=== PATIENT | male | born 1985 | race Caucasian/White ===

== ENCOUNTER 2020-11-13 08:08 | Emergency (ER) | payer BC ==
[~2020-11-13] VITALS: Ht 195.6 cm; Wt 99.8 kg
[2020-11-13 08:08] VITALS: BP_SYST 132
--- NOTE | 2020-11-13 08:08 | NUR ---
Pt with c/o dog bite to left index finger. No pain noted. VSS
--- NOTE | 2020-11-13 08:08 | NUR ---
ER Dr. Allen at bedside examining patient.
--- NOTE | 2020-11-13 08:08 | NUR ---
BROUGHT BACK TO BED #7 AND TRIAGED. REPORT GIVEN TO JANA Younger
[2020-11-13] MEDS ORDERED: AMOX-426 PO (08:22)
[2020-11-13] MEDS ORDERED: cefTRIAXone 1 GM in LIDOCAINE 1%, 20 ML MDV 2.1 ML IM ONE (08:30)
--- NOTE | 2020-11-13 08:30 | NUR ---
IM rocephin administered per md order.
--- NOTE | 2020-11-13 08:39 | NUR ---
Animal bite reporting form filled out. Pt states he does not know the owners name, address or any information reguarding the dog.
--- NOTE | 2020-11-13 08:41 | NUR ---
Patient given written and verbal discharge instructions and verbalizes understanding. ER MD discussed with patient the results and treatment provided. Patient in stable condition. ID arm band removed. Rx of Amoxacillin given. Patient educated on pain management and to follow up with PMD. Pain Scale 3. Opportunity for questions provided and answered. Medication side effect fact sheet provided.
[2020-11-13 08:43] VITALS: BP_SYST 132
== END 2020-11-13 08:41 | disposition home or self-care (01) ==
LOC: SED 08:08
DX: S60.478A Other superficial bite of other finger, initial encounter (principal); W54.0XXA Bitten by dog, initial encounter; Y93.89 Activity, other specified; Y92.89 Other specified places as the place of occurrence of the external cause; Y99.8 Other external cause status
CPT/HCPCS: 96372; 99283; J0696; J2001